=== PATIENT | female | born 1950 | race Caucasian/White ===

== ENCOUNTER 2018-05-30 23:24 | Emergency (ER) | payer MEDICARE, OTHER, SELFPAY ==
[2018-05-30 23:37] VITALS: BP 187/67; PULSE 64; RESP 17; TEMP 36.8; O2SAT 99; BMI 39.9
--- NOTE | 2018-05-30 23:56 | ED.FEMALEGU ---
HPI - Female Genitourinary General Chief complaint: Urogenital-Female Stated complaint: PREVIOUS FEVER AND DOESNT FEEL GOOD Time Seen by Provider: 05/30/18 23:53 Source: patient Mode of arrival: ambulatory Limitations: no limitations History of Present Illness HPI Narrative: Patient is a 68-year-old female who a couple days ago was seen by her primary care doctor for left flank pain. She had a CT scan performed at another facility where she stated that she was told she had bilateral kidney stones. She states that she was told that all of the stones were up in the kidneys. None were in the ureters. She was told that these are what was causing her pain. She was told that if she developed any fevers she needed to be evaluated. She states that earlier today she started having chills. Took her temperature and it was 100.4. EMS was called they are temperature was 99?. She came here to the emergency department for evaluation Related Data Previous Rx's Medication Instructions Recorded bupropion HCl 150 mg PO QDAY #180 tab 11/23/16 sertraline 200 mg PO QDAY #180 tab 11/23/16 Allergies Allergy/AdvReac Type Severity Reaction Status Date / Time cephalexin [From KEFLEX] Allergy Mild Unverified 09/19/17 12:39 Penicillins [PENICILLINS] Allergy Unknown Unverified 09/19/17 12:39 Review of Systems Constitutional Denies fatigue, Reports fever(s) and Reports malaise ENT Ears, Nose, Mouth, and Throat: Reports sinus pressure and Denies sore throat Cardiovascular Denies chest pain and Denies dyspnea Respiratory Denies dyspnea Gastrointestinal Gastrointestinal: Denies nausea and Denies vomiting Genitourinary Denies dysuria and Reports flank pain Endocrine Denies fatigue Hematologic/Lymphatic Denies easy bleeding PFSH Medical History Healthy adult (Acute) Surgical History No pertinent past surgical history (Acute) Social History Smoking Status: Never smoker Exam Initial Vital Signs Initial Vital Signs: Vital Signs Temperature 98.3 F 05/30/18 23:37 Pulse Rate 64 05/30/18 23:37 Respiratory Rate 17 05/30/18 23:37 Blood Pressure 187/67 H 05/30/18 23:37 Pulse Oximetry 99 05/30/18 23:37 Const General: cooperative, healthy appearing, comfortable, well developed, well groomed and No acute distress Orientation: alert, awake and oriented x3 HENMT Head: normal to inspection and normocephalic Resp Effort & Inspection: normal respiratory effort Auscultation: clear to auscultation bilaterally Cardio Rate: regular rate Rhythm: regular rhythm GI Inspection: non-distended Palpation: soft and No tender Back/Spine/Pelvis Back: No CVA tenderness Skin Rashes: no rashes Neuro General: alert, awake and oriented x3 Extrem General: normal to inspection and capillary refill normal Psych Appearance: grossly normal and well kempt Course Orders Ordered: ED Orders 05/31/18 00:15 Basic Metabolic Panel Stat Complete Blood Count AUTO DIFF Stat 05/31/18 00:26 Urine Microscopic Stat Vital Signs - 8 hr 05/30/18 23:37 Temperature 98.3 F Pulse Rate 64 Respiratory Rate 17 Blood Pressure 187/67 H Pulse Oximetry 99 MDM - Female Genitourinary Lab Data Attestation: I reviewed the patient's lab results. Result diagrams: 05/31/18 00:15 05/31/18 00:15 Lab Results 05/31/18 05/31/18 05/31/18 Range/Units 00:15 00:15 00:26 WBC 10.0 (4.5-11.0) X10^3/uL RBC 4.52 (4.0-5.2) X10^6/uL Hgb 13.5 (12.0-16.0) g/dL Hct 39.9 (36-46) % MCV 88.1 (80-100) fL MCH 29.9 (26-34) PG MCHC 34.0 (30-36) % RDW 12.6 (11.6-14.8) % Plt Count 309 (150-400) X10^3/uL Neut % (Auto) 71.2 (50-75) % Lymph % (Auto) 18.3 L (25-40) % [place] % (Auto) 8.8 (3-14) % Eos % (Auto) 1.3 L (2-4) % Baso % (Auto) 0.4 (0-2) % Neut # (Auto) 7100 H (3125-0779) /uL Sodium 140 (137-145) mmol/L Potassium 3.8 (3.4-5.1) mmol/L Chloride 107 (98-107) mmol/L Carbon Dioxide 24 (22-32) mmol/L BUN 19 H (7-17) mg/dL Creatinine 1.10 H (0.52-1.04) mg/dL Estimated GFR 49.7 L (>60) mL/min BUN/Creatinine Ratio 17.3 (6-22) Glucose 117 H (80-110) mg/dL Calcium 9.3 (8.4-10.2) mg/dL Urine RBC 1-5/hpf (0-5/HPF) Urine WBC 0-1/hpf (0-5/HPF) Urine Bacteria None seen (None) Ur Culture Indicated? Cult not indicated Micro UA Comment Not Reportable Urine Dip Bedside Urine Glucose Negative Bedside Urine Bilirubin - Negative Bedside Urine Ketone - Negative Urine Specific [place] 1.020 Bedside Urine Occult Blood ++ Bedside Urine pH 6.0 Bedside Urine Protein - Negative Bedside Urine Urobilinogen - Negative Bedside Urine Nitrite - Negative Bedside Urine Leukocytes - Negative Esterase MDM Narrative Medical decision making narrative: Patient shows no signs of urinary tract infection. She is not in any pain. He is afebrile. Does not have any leukocytosis. Will hold on further workup for now. Will hold on a CT scan for now because she knows that she has bilateral nephrolithiasis. No indication for antibiotics. When the patient follow up with her primary doctor regarding her blood pressure and also her slightly elevated creatinine. Patient was given return precautions. She expressed understanding and agreement with plan. Discharge Plan Departure Patient Disposition: Home Clinical Impression: Hematuria, Hypertension Instructions: Blood in Urine Activity Restrictions/Additional Instructions: I do recommend you follow-up with your primary doctor to discuss your slightly elevated blood pressure and also to discuss your labs. There is no signs of infection found on your workup here in the emergency department. Keep all of your scheduled medical appointments. Return to the emergency department for any new or worsening symptoms Prescriptions: No Action sertraline 100 MG tablet 200 mg PO QDAY Qty: 180 RF: 3 bupropion HCl 75 MG tablet 150 mg PO QDAY Qty: 180 RF: 3
[2018-05-31 00:29] LABS: Add Manual Diff / Slide Review NO; Basophils Percent Auto 0.4 % (0-2); Eosinophils Percent Auto 1.3 % (2-4); Hematocrit 39.9 % (36-46); Hemoglobin 13.5 g/dL (12.0-16.0); Lymphocytes Percent Auto 18.3 % (25-40); Mean Corpuscular Hemoglobin 29.9 PG (26-34); Mean Corpuscular Volume 88.1 fL (80-100); Monocytes Percent Auto 8.8 % (3-14); Neutrophils Absolute Auto 7100 /uL (1500-7000); Neutrophils Percent Auto 71.2 % (50-75); Platelet Count 309 X10^3/uL (150-400); Red Blood Cell Count 4.52 X10^6/uL (4.0-5.2); Red Cell Distribution Width 12.6 % (11.6-14.8)
[2018-05-31 00:34] LABS: Bacteria Urine None Seen
[2018-05-31 00:38] LABS: BUN Creatinine Ratio 17.3 (6-22); Blood Urea Nitrogen 19 mg/dL (7-17); Calcium 9.3 mg/dL (8.4-10.2); Carbon Dioxide 24 mmol/L (22-32); Chloride 107 mmol/L (98-107); Estimated Glomerular Filt Rate 49.7 mL/min (>60); Glucose 117 mg/dL (80-110); HEMOLYSIS < 15 (0-50); Potassium 3.8 mmol/L (3.4-5.1); Sodium 140 mmol/L (137-145)
[2018-05-31 00:54] LABS: RBC Urine 1-5/HPF (0-5/HPF); WBC Urine 0-1/HPF (0-5/HPF)
[2018-05-31 00:55] LABS: Culture Indicated Urine Cult Not Indicated
[2018-05-31 01:38] VITALS: BP 170/62; PULSE 62; RESP 16; TEMP 36.9; O2SAT 98
== END 2018-05-31 01:39 | disposition home or self-care (01) ==
PROVIDERS: Emergency Provider Emergency Medicine; PCP Family Medicine
DX: R31.9 Hematuria, unspecified (principal); I10 Essential (primary) hypertension
CPT/HCPCS: 36415; 80048; 81003; 81015; 85025; 99282; 99283

== ENCOUNTER → 2020-07-20 10:41 | Outpatient (CLI) | payer MEDICARE, OTHER, SELFPAY ==
--- NOTE | 2020-07-20 | DI.RAD.S_ITS ---
PROCEDURE: XR LUMBAR SPINE 2-3V INDICATIONS: Other chronic pain TECHNIQUE: 3 views of the lumbar spine were acquired. COMPARISON: None. FINDINGS: Bones: 5 [id number] vertebrae are present. There is normal bony alignment. No acute vertebral body compression fractures. No suspicious bony lesions. Multilevel lumbar spondylosis with mild degenerative endplate changes and small endplate osteophytes. Moderate-severe mid and lower lumbar facet arthropathy. Soft tissues: Overlying bowel gas pattern is normal. No suspicious soft tissue calcifications. Surgical clips in right upper quadrant compatible with prior cholecystectomy. IMPRESSION: 1. Lumbar spine without acute radiographic abnormalities. 2. Multilevel lumbar spondylosis with moderate-severe mid and lower lumbar facet arthropathy. Dictated by: Karlo Lares M.D. on 07/20/2020 at 17:37 Approved by: Karlo Lares M.D. on 07/20/2020 at 17:38
--- NOTE | 2020-07-20 | DI.RAD.S_ITS ---
PROCEDURE: XR SHOULDER LT MIN 2V INDICATIONS: Other chronic pain TECHNIQUE: 3 views of the shoulder were acquired. COMPARISON: None. FINDINGS: Bones: No acute fractures or dislocations. 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 Coracoclavicular and acromioclavicular intervals are maintained. No suspicious bony lesions. Visualized ribs appear intact. Soft tissues: No suspicious soft tissue calcifications. IMPRESSION: Left shoulder without acute fracture or dislocation. 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 Dictated by: Karlo Lares M.D. on 07/20/2020 at 17:36 Approved by: Karol Lares M.D. on 07/20/2020 at 17:37
--- NOTE | 2020-07-20 | DI.RAD.S_ITS ---
PROCEDURE: XR HIP W PEL IF DONE LT MIN 4V INDICATIONS: Other chronic pain TECHNIQUE: AP pelvis with lateral view(s) of the bilateral hip(s). COMPARISON: None. FINDINGS: Bones: No acute fractures or dislocations. Pelvic ring appears intact. No suspicious bony lesions. Mild degenerative changes of the bilateral hip joints. Mild lower lumbar spondylosis. Soft tissues: The visualized bowel gas pattern is normal. No suspicious soft tissue calcifications. IMPRESSION: Bilateral hip without acute fracture or dislocation. Mild degenerative changes of the bilateral hip joints. Lower lumbar spondylosis. Dictated by: Karlo Lares M.D. on 07/20/2020 at 17:39 Approved by: Karlo Lares M.D. on 07/20/2020 at 17:40
== END ==
PROVIDERS: PCP Family Medicine; Referring Provider Family Medicine; Visit Provider Family Medicine
DX: M25.512 Pain in left shoulder (principal); M54.5 Low back pain; M47.816 Spondylosis without myelopathy or radiculopathy, lumbar region; G89.29 Other chronic pain
CPT/HCPCS: 72100; 73030; 73522

== ENCOUNTER → 2020-09-23 12:16 | Outpatient (CLI) | payer MEDICARE, SELFPAY ==
--- NOTE | 2020-09-23 | DI.US.S_ITS ---
PROCEDURE: US RETROPERITONEAL COMP INDICATIONS: calculus of kidney TECHNIQUE: Real-time scanning was performed of the kidneys and bladder, with image documentation. COMPARISON: None. FINDINGS: Kidneys: Kidneys are normal in size. Right kidney measures 12.5 cm long; left kidney measures 1.7 cm long. Right renal cortical thickness is 13.1 cm; left renal cortical thickness is 1.5 cm. Renal cortical echotexture is normal. No hydronephrosis or nephrolithiasis. No suspicious solid mass lesions. Bladder: Pre-void bladder volume is 263 mL. Post-void residual is 0 mL. Pre-void images demonstrate no intraluminal masses or stones. On pre-void images, left but not right ureteral jets are noted with color Doppler interrogation. (Of note, ureteral jets may not be detectable in up to 25% of cases due to insufficient differences in specific gravity between ureteral and bladder urine). Miscellaneous: No free pelvic fluid. IMPRESSION: Normal renal ultrasound. No evidence of kidney stones. Dictated by: Edison Quigley M.D. on 09/23/2020 at 23:58 Approved by: Edison Quigley M.D. on 09/24/2020 at 0:00
== END ==
PROVIDERS: PCP Family Medicine; Referring Provider Internal Medicine Nephrology; Visit Provider Internal Medicine Nephrology
DX: N20.0 Calculus of kidney (principal)
CPT/HCPCS: 76770

== ENCOUNTER → 2020-12-28 10:09 | Outpatient (CLI) | payer MEDICARE, SELFPAY ==
[2020-12-28 19:11] LABS: Albumin 4.2 g/dL (3.5-5.0); BUN Creatinine Ratio 36.9 (6-22); Blood Urea Nitrogen 24 mg/dL (7-17); Calcium 10.2 mg/dL (8.4-10.2); Carbon Dioxide 26 mmol/L (22-32); Chloride 101 mmol/L (98-107); Estimated Glomerular Filt Rate > 60.0 mL/min (>60); Glucose 139 mg/dL (80-110); HEMOLYSIS < 15 (0-50); Phosphorous 3.6 mg/dL (2.8-4.1); Potassium 3.9 mmol/L (3.4-5.1); Sodium 137 mmol/L (137-145)
== END ==
PROVIDERS: PCP Family Medicine; Visit Provider Internal Medicine Nephrology
DX: E87.6 Hypokalemia (principal)
CPT/HCPCS: 80069

== ENCOUNTER → 2022-12-07 09:17 | Outpatient (CLI) | payer MEDICARE, SELFPAY ==
[2022-12-07 20:11] LABS: Thyroid Stimulating Hormone 2.47 uIU/mL (0.47-4.68)
[2022-12-07 20:17] LABS: Alanine Aminotransferase 25 IU/L (<35); Albumin 4.2 g/dL (3.5-5.0); Albumin Globulin Ratio 1.3 (1.0-2.8); Alkaline Phosphatase 55 U/L (38-126); Aspartate Aminotransferase 54 IU/L (14-36); BUN Creatinine Ratio 33.3 (6-22); Bilirubin Total 0.8 mg/dL (0.2-1.3); Blood Urea Nitrogen 20 mg/dL (7-17); Calcium 9.3 mg/dL (8.4-10.2); Carbon Dioxide 25 mmol/L (22-32); Chloride 100 mmol/L (98-107); Cholesterol 160 mg/dL (140-199); Estimated Glomerular Filt Rate > 60 mL/min (>60); Globulin 3.2 g/dL (1.7-4.1); Glucose 127 mg/dL (80-110); HDL Cholesterol 55 mg/dL (40-60); HEMOLYSIS 21 (0-50); LDL Cholesterol Calculated 78 mg/dL (<100); Potassium 3.8 mmol/L (3.4-5.1); Sodium 134 mmol/L (137-145); Total Protein 7.4 g/dL (6.3-8.2); Triglycerides 137 mg/dL (35-150)
[2022-12-07 20:22] LABS: Add Manual Diff / Slide Review YES; Hematocrit 44.7 % (36-46); Hemoglobin 15.3 g/dL (12.0-16.0); Mean Corpuscular HGB Conc 34.2 % (30-36); Mean Corpuscular Volume 87.6 fL (80-100); Platelet Count 279 X10^3/uL (150-400); Red Cell Distribution Width 12.7 % (11.6-14.8); White Blood Cell Count 5.6 X10^3/uL (4.5-11.0)
[2022-12-07 20:38] LABS: Neutrophils Absolute Manual 4312 /uL (3000-5900); RBC Morphology Normal Morphology; Total Cells Counted 100
[2022-12-08 23:07] LABS: x Labcorp Estim. Avg Glu (eAG) 128 mg/dL (.); x Labcorp Hemoglobin A1c 6.1 % (4.8-5.6)
== END ==
PROVIDERS: PCP Family Medicine; Visit Provider Family Medicine
DX: R73.09 Other abnormal glucose (principal); E87.6 Hypokalemia; I10 Essential (primary) hypertension
CPT/HCPCS: 80053; 80061; 83036; 84443; 85007; 85025

== ENCOUNTER → 2023-01-11 13:00 | Outpatient (CLI) | payer MEDICARE, SELFPAY ==
[2023-01-11 19:49] LABS: Alanine Aminotransferase 25 IU/L (<35); Albumin 4.4 g/dL (3.5-5.0); Albumin Globulin Ratio 1.5 (1.0-2.8); Alkaline Phosphatase 54 U/L (38-126); Aspartate Aminotransferase 30 IU/L (14-36); BUN Creatinine Ratio 31.1 (6-22); Bilirubin Total 0.5 mg/dL (0.2-1.3); Blood Urea Nitrogen 19 mg/dL (7-17); Calcium 9.8 mg/dL (8.4-10.2); Carbon Dioxide 26 mmol/L (22-32); Chloride 102 mmol/L (98-107); Estimated Glomerular Filt Rate > 60 mL/min (>60); Globulin 2.9 g/dL (1.7-4.1); Glucose 112 mg/dL (80-110); HEMOLYSIS < 15 (0-50); Potassium 3.9 mmol/L (3.4-5.1); Sodium 136 mmol/L (137-145); Total Protein 7.3 g/dL (6.3-8.2)
[2023-01-13 04:10] LABS: HBsAg Screen Negative (Negative); Hepatitis A Antibody IgM Negative (Negative); Hepatitis B Core Antibody IgM Negative (Negative); Hepatitis C Antibody Non Reactive (Non Reactive)
== END ==
PROVIDERS: PCP Family Medicine; Visit Provider Family Medicine
DX: R79.89 Other specified abnormal findings of blood chemistry (principal); E66.01 Morbid (severe) obesity due to excess calories; E78.2 Mixed hyperlipidemia; E87.1 Hypo-osmolality and hyponatremia; E87.6 Hypokalemia; I10 Essential (primary) hypertension; Z68.41 Body mass index [BMI] 40.0-44.9, adult; R73.09 Other abnormal glucose
CPT/HCPCS: 80053; 80074

== ENCOUNTER → 2023-02-28 12:01 | Outpatient (CLI) | payer MEDICARE, SELFPAY ==
[2023-02-28 20:18] LABS: BUN Creatinine Ratio 27.1 (6-22); Blood Urea Nitrogen 19 mg/dL (7-17); Calcium 9.9 mg/dL (8.4-10.2); Carbon Dioxide 29 mmol/L (22-32); Chloride 97 mmol/L (98-107); Estimated Glomerular Filt Rate > 60 mL/min (>60); Glucose 134 mg/dL (80-110); HEMOLYSIS < 15 (0-50); Sodium 135 mmol/L (137-145)
== END ==
PROVIDERS: PCP Family Medicine; Visit Provider Family Medicine
DX: E87.1 Hypo-osmolality and hyponatremia (principal); E87.6 Hypokalemia
CPT/HCPCS: 80048

== ENCOUNTER → 2023-03-08 10:37 | Outpatient (CLI) | payer MEDICARE, SELFPAY ==
--- NOTE | 2023-03-08 10:39 | DI.MG.S_ITS ---
BILATERAL DIGITAL SCREENING MAMMOGRAM 3D/2D WITH CAD: 03/08/2023 CLINICAL: Routine screening. Family history of breast cancer. Comparison is made to exams dated: 08/21/2017 mammogram - [facility], 12/15/2013 mammogram, and 12/03/2012 mammogram - [facility] ([place], [place]. There are scattered areas of fibroglandular density in both breasts (category b / 25%-50% glandular tissue). Current study was also evaluated with a Computer Aided Detection (CAD) system. No significant masses, calcifications, or other findings are seen in either breast. There has been no significant interval change. IMPRESSION: NEGATIVE There is no mammographic evidence of malignancy. A 1 year screening mammogram is recommended. Based on the Tyrer Cuzick model (a risk assessment model) the patient's lifetime risk is 4.4% and her 10 year risk is 3.0%. According to the ACR, ACS, and NCCN guidelines, an annual breast MRI exam along with mammogram is recommended if the patient's lifetime risk is 20% or greater. This exam was interpreted at Station ID: [id number]. NOTE: For mammograms, a report in lay terms will be sent to the patient. Approximately 15% of breast malignancies will not be visualized mammographically. In the management of a palpable breast mass, a negative mammogram must not discourage biopsy of a clinically suspicious lesion. Electronically Signed By: Sam yousif/juan c:03/08/2023 11:52:13 letter sent: Normal Exam ACR BI-RADS Category 1: Negative [id number]
== END ==
PROVIDERS: PCP Family Medicine; Referring Provider Family Medicine; Visit Provider Family Medicine
DX: Z12.31 Encounter for screening mammogram for malignant neoplasm of breast (principal); Z80.3 Family history of malignant neoplasm of breast
CPT/HCPCS: 77063; 77067

== ENCOUNTER → 2023-05-10 11:26 | Outpatient (CLI) | payer MEDICARE, SELFPAY ==
[2023-05-10 21:16] LABS: BUN Creatinine Ratio 31.7 (6-22); Blood Urea Nitrogen 20 mg/dL (7-17); Calcium 10.1 mg/dL (8.4-10.2); Carbon Dioxide 28 mmol/L (22-32); Chloride 99 mmol/L (98-107); Estimated Glomerular Filt Rate > 60 mL/min (>60); Glucose 117 mg/dL (80-110); HEMOLYSIS < 15 (0-50); Potassium 4.1 mmol/L (3.4-5.1); Sodium 136 mmol/L (137-145)
== END ==
PROVIDERS: PCP Family Medicine; Visit Provider Family Medicine
DX: E87.1 Hypo-osmolality and hyponatremia (principal); E87.6 Hypokalemia; I10 Essential (primary) hypertension
CPT/HCPCS: 80048

== ENCOUNTER 2023-06-19 18:52 | Observation (INO) | payer MEDICARE, SELFPAY ==
[2023-06-19] VITALS (17 sets, daily range): BP systolic 113–144; BP diastolic 58–88; PULSE 66–145; RESP 13–39; TEMP 36.8–37.1; O2SAT 96–98; BMI 41.1
--- NOTE | 2023-06-19 19:03 | DI.RAD.S_ITS ---
PROCEDURE: XR CHEST 1V INDICATIONS: chest pain TECHNIQUE: One view of the chest was acquired. COMPARISON: None. FINDINGS: Surgical changes and devices: None. Lungs and pleura: Lungs are clear. No pleural effusions or pneumothorax. Mediastinum: Mediastinal contours appear normal. Heart size is normal. Bones and chest wall: No suspicious bony lesions. Overlying soft tissues appear unremarkable. IMPRESSION: No acute cardiopulmonary abnormality is seen. Dictated by: Paco Lombardi M.D. on 06/19/2023 at 19:57 Approved by: Paco Lombardi M.D. on 06/19/2023 at 19:57
[2023-06-19 20:00] LABS: Add Manual Diff / Slide Review NO; Basophils Absolute Auto 0 /uL (0-100); Basophils Percent Auto 0.4 % (0-2); Eosinophils Absolute Auto 0 /uL (0-450); Eosinophils Percent Auto 0.5 % (2-4); Hemoglobin 16.4 g/dL (12.0-16.0); Lymphocytes Absolute Auto 1500 /uL (1100-4500); Lymphocytes Percent Auto 16.1 % (25-40); Mean Corpuscular HGB Conc 34.1 % (30-36); Mean Corpuscular Hemoglobin 30.1 PG (26-34); Mean Corpuscular Volume 88.3 fL (80-100); Monocytes Absolute Auto 700 /uL (0-900); Monocytes Percent Auto 7.9 % (3-14); Neutrophils Absolute Auto 6900 /uL (1500-7000); Neutrophils Percent Auto 75.1 % (50-75); Platelet Count 401 X10^3/uL (150-400); Prothrombin Time 11.8 SECONDS (9.4-12.5); Red Blood Cell Count 5.43 X10^6/uL (4.0-5.2); White Blood Cell Count 9.2 X10^3/uL (4.5-11.0)
[2023-06-19 20:02] LABS: PTT Partial Thromboplastin Tim 30 SECONDS (25.1-36.5)
[2023-06-19 20:05] LABS: Alanine Aminotransferase 30 IU/L (<35); Albumin 4.6 g/dL (3.5-5.0); Albumin Globulin Ratio 1.4 (1.0-2.8); Alkaline Phosphatase 57 U/L (38-126); Aspartate Aminotransferase 31 IU/L (14-36); Bilirubin Total 0.8 mg/dL (0.2-1.3); Blood Urea Nitrogen 16 mg/dL (7-17); Calcium 10.2 mg/dL (8.4-10.2); Carbon Dioxide 22 mmol/L (22-32); Chloride 103 mmol/L (98-107); Creatine Kinase 57 U/L (30-135); Estimated Glomerular Filt Rate > 60 mL/min (>60); Globulin 3.4 g/dL (1.7-4.1); Glucose 121 mg/dL (80-110); HEMOLYSIS 17 (0-50); Lipase 62 U/L (23-300); Potassium 3.9 mmol/L (3.4-5.1); Sodium 136 mmol/L (137-145)
[2023-06-19 20:16] LABS: Troponin I < 0.012 ng/mL (0.01-0.034)
--- NOTE | 2023-06-19 20:24 | ED_ITS ---
HPI - Arrhythmia/Palpitations General Chief Complaint: Arrhythmia/Palpitations Stated Complaint: AFIB Time Seen by Provider: 06/19/23 20:07 Source: patient Mode of arrival: Ambulatory Limitations: no limitations History of Present Illness HPI narrative: Patient is a 73-year-old female who was sent to the emergency department by her primary doctor for evaluation of a rapid heart rate. Patient went to go see her primary doctor today for right ear discomfort. It was during that visit she was found to be tachycardic into the 150s. Patient is asymptomatic with regard to the tachycardia. She has never had a history of AFib. No chest pain. No shortness of breath. No lightheadedness. She is never had a history of AFib. She was told that she potentially has an infection of her right ear and also ear wax. She does wear hearing aids. She denies abdominal pain, nausea vomiting, fevers or lower extremity swelling. Related Data Home Medications Medication Instructions Recorded Confirmed acetaminophen 500 mg tablet 500 mg PO ONCE PRN 09/29/22 06/19/23 (Tylenol Extra Strength) cetirizine 10 mg tablet 10 mg PO DAILY PRN 09/29/22 06/19/23 cholecalciferol (vitamin D3) 25 25 mcg PO DAILY 09/29/22 06/19/23 mcg (1,000 unit) capsule ferrous sulfate 140 mg (45 mg 140 mg PO DAILY 09/29/22 06/19/23 iron) tablet,extended release potassium chloride 20 mEq 40 meq PO BID 10/02/22 06/19/23 tablet,extended release(part/cryst) fluoride (sodium) 1.1 % dental dental 12/28/22 06/19/23 paste (Clinpro 5000) Previous Rx's Medication Instructions Recorded azelastine 137 mcg (0.1 %) nasal 1 spray intranasal BID #30 mL 09/29/22 spray aerosol ipratropium bromide 21 mcg (0.03 2 spray intranasal TID PRN allergy 11/28/22 %) nasal spray symptoms #90 mL chlorthalidone 25 mg tablet 25 mg PO DAILY #90 tabs 02/26/23 bupropion HCl 100 mg tablet,12 hr 100 mg PO BID #180 ea 03/02/23 sustained-release amiloride 5 mg tablet 10 mg (2 x 5 mg) PO DAILY #180 tabs 03/22/23 amlodipine 10 mg tablet 10 mg PO QAM for blood pressure. 05/19/23 take every day even if normal #90 tabs lisinopril 5 mg tablet 5 mg PO QPM take every day for BP 05/19/23 -- take even if normal #90 tabs rosuvastatin 40 mg tablet 40 mg PO ONCE PM #90 tabs 05/19/23 sertraline 100 mg tablet 200 mg (2 x 100 mg) PO DAILY #180 05/19/23 tabs ciprofloxacin 0.3 %-dexamethasone 4 drp EAR-RIGHT BID 7 days #7.5 mL 06/19/23 0.1 % ear drops,suspension Allergies Allergy/AdvReac Type Severity Reaction Status Date / Time cephalexin [From KEFLEX] Allergy Mild Verified 06/19/23 14:43 Penicillins [PENICILLINS] Allergy Unknown Verified 06/19/23 14:43 Review of Systems Review of Systems ROS Unobtainable: All systems reviewed & are unremarkable except as noted in HPI and below Patient History Medical History Mood disorder Hypertension Kidney stones Hypokalemia Morbid obesity with BMI of 40.0-44.9, adult Clear cell renal cell carcinoma Chronic allergic rhinitis Healthy adult Surgical History Hx of nephrolithotomy with removal of calculi Social History Smoking Status: Never smoker Smoking Status: Never smoker alcohol intake frequency: holidays/special occasions only Substance Use Type: does not use Exam Initial Vital Signs Initial Vital Signs: Vital Signs Temperature 98.7 F 06/19/23 18:57 Pulse Rate 66 06/19/23 18:57 Respiratory Rate 20 06/19/23 18:57 Pulse Oximetry 97 06/19/23 18:57 Oxygen Delivery Method Room Air 06/19/23 18:57 Const General: cooperative, comfortable and No ill appearing HENMT Head: normal to inspection HENMT Other: Appears to be cerumen in her right ear Resp Effort & Inspection: normal respiratory effort Auscultation: clear to auscultation bilaterally Cardio Rate: tachycardic Rhythm: abnormal rhythm GI Inspection: normal to inspection Skin General: no rashes or lesions noted Neuro General: patient alert, patient awake, patient oriented x3 and moves all extremities Extrem General: normal to inspection and capillary refill normal Course Orders Ordered: ED Orders 06/19/23 19:03 XR chest 1V Stat EKG-12 Lead Stat 06/19/23 19:40 Complete Blood Count AUTO DIFF Stat Comprehensive Metabolic Panel Stat Lipase Stat Magnesium Stat PTT Partial Thromboplastin Fredrick Stat Prothrombin Time INR Stat Troponin & CK Cardiac Panel Stat Acetaminophen (Acetaminophen 325 Mg Tablet) 650 mg PO Q6H PRN PRN Reason: Fever/Mild Pain (1-3) Bupropion HCl (Bupropion Sr 100 Mg Tab) 100 mg PO BID SEVERINO Ciprofloxacin/Dexamethasone (Ciprofloxacin/Dexameth Otic Susp) drops EAR-RIGHT BID SEVERINO DILTIAZEM (Diltiazem 125 Mg/125 Ml-D5w) 125 mg in 125 mls @ 5 mls/hr IV TITRATE SEVERINO; Protocol Last Titration: 06/19/23 21:26 Dose: 15 mg/hr, 15 mls/hr Documented By: Titration: 06/19/23 20:59 Dose: 10 mg/hr, 10 mls/hr Documented By: Admin: 06/19/23 20:35 Dose: 5 mg/hr, 5 mls/hr Documented By: ZAC Naloxone HCl (Naloxone 0.4 Mg/Ml Vial) 0.2 mg IV Q2MIN PRN PRN Reason: Opiate Reversal Non-Formulary Medication (Rosuvastatin) 40 mg PO ONCE PM SEVERINO Non-Formulary Medication (Cetirizine) 10 mg PO DAILY PRN PRN Reason: Allergic Symptoms Sertraline HCl (Sertraline 50 Mg Tablet) 200 mg PO DAILY [facility] Discontinued Medications Aspirin (Aspirin 81 Mg Chew Tab) 324 mg PO NOW ONE Stop: 06/19/23 19:04 Diltiazem HCl (Diltiazem 5 Mg/Ml Sdv) 10 mg IV NOW ONE Stop: 06/19/23 20:25 Last Admin: 06/19/23 20:31 Dose: 10 mg Documented By: ZAC Vital Signs Vital signs: Vital Signs - 8 hr 06/19/23 18:57 06/19/23 20:00 06/19/23 20:01 Temperature 98.7 F Pulse Rate 66 145 H Respiratory Rate 20 19 Blood Pressure 144/87 H Pulse Oximetry 97 96 Oxygen Delivery Method Room Air 06/19/23 20:01 06/19/23 20:30 06/19/23 20:35 Temperature Pulse Rate 128 H 137 H Respiratory Rate 24 30 H Blood Pressure 131/58 L Pulse Oximetry 97 97 Oxygen Delivery Method Room Air 06/19/23 20:35 06/19/23 20:58 06/19/23 20:59 Temperature Pulse Rate 125 H 124 H Respiratory Rate 31 H 17 Blood Pressure 116/63 Pulse Oximetry 98 96 Oxygen Delivery Method 06/19/23 20:59 06/19/23 21:00 06/19/23 21:00 Temperature Pulse Rate 119 H 121 H Respiratory Rate 23 13 Blood Pressure 132/61 Pulse Oximetry 98 97 Oxygen Delivery Method MDM - Arrhythmia/Palpitations Lab Data Attestation: I reviewed the patient's lab results. 06/19/23 19:40 06/19/23 19:40 Labs: Lab Results 06/19/23 Range/Units 19:40 WBC 9.2 (4.5-11.0) X10^3/uL RBC 5.43 H (4.0-5.2) X10^6/uL Hgb 16.4 H (12.0-16.0) g/dL Hct 48.0 H (36-46) % MCV 88.3 (80-100) fL MCH 30.1 (26-34) PG MCHC 34.1 (30-36) % RDW 13.0 (11.6-14.8) % Plt Count 401 H (150-400) X10^3/uL Neut % (Auto) 75.1 H (50-75) % Lymph % (Auto) 16.1 L (25-40) % [place] % (Auto) 7.9 (3-14) % Eos % (Auto) 0.5 L (2-4) % Baso % (Auto) 0.4 (0-2) % Neut # (Auto) 6900 (7297-3674) /uL Lymph # (Auto) 1500 (0821-5560) /uL [place] # (Auto) 700 (0-900) /uL Eos # (Auto) 0 (0-450) /uL Baso # (Auto) 0 (0-100) /uL PT 11.8 (9.4-12.5) SECONDS INR 1.0 (0.9-1.3) APTT 30 (25.1-36.5) SECONDS Sodium 136 L (137-145) mmol/L Potassium 3.9 (3.4-5.1) mmol/L Chloride 103 (98-107) mmol/L Carbon Dioxide 22 (22-32) mmol/L BUN 16 (7-17) mg/dL Creatinine 0.64 (0.52-1.04) mg/dL Estimated GFR > 60 (>60) mL/min BUN/Creatinine Ratio 25.0 H (6-22) Glucose 121 H (80-110) mg/dL Calcium 10.2 (8.4-10.2) mg/dL Magnesium 2.0 (1.6-2.3) mg/dL Total Bilirubin 0.8 (0.2-1.3) mg/dL AST 31 (14-36) IU/L ALT 30 (<35) IU/L Alkaline Phosphatase 57 (38-126) U/L Total Creatine Kinase 57 (30-135) U/L Troponin I < 0.012 (0.01-0.034) ng/mL Total Protein 8.0 (6.3-8.2) g/dL Albumin 4.6 (3.5-5.0) g/dL Globulin 3.4 (1.7-4.1) g/dL Albumin/Globulin Ratio 1.4 (1.0-2.8) Lipase 62 (23-300) U/L Imaging Data Chest x-ray: Radiologist's Impresson: PROCEDURE: XR CHEST 1V INDICATIONS: chest pain TECHNIQUE: One view of the chest was acquired. COMPARISON: None. FINDINGS: Surgical changes and devices: None. Lungs and pleura: Lungs are clear. No pleural effusions or pneumothorax. Mediastinum: Mediastinal contours appear normal. Heart size is normal. Bones and chest wall: No suspicious bony lesions. Overlying soft tissues appear unremarkable. IMPRESSION: No acute cardiopulmonary abnormality is seen. ECG Data Attestation: I personally reviewed and interpreted this ECG as follows: Interpretation: Atrial fibrillation Ventricular rate 146 Normal axis Normal QRS Nonspecific ST T wave changes MDM Narrative Medical decision making narrative: Patient is AFib with RVR. Not hypotensive. She is asymptomatic from this. Unsure as to how long she has been in AFib. Not a candidate for cardioversion. Patient does require rate control. Was started on diltiazem. Patient does require admission for further evaluation and treatment. Discussed the case with Dr. Velásquez hospitalist on-call who will admit. Discussed the need for admission with the patient. She expressed understanding and agreement as well. Discharge Plan Departure Patient Disposition: Admitted As Inpatient Clinical Impression: Atrial fibrillation with RVR Admit Date/Time: 06/19/23 21:41 Admit Provider: Gumaro Garcia
[2023-06-19] MEDS: dilTIAZem 5 MG/ML SDV 10 MG IV (20:31)
[2023-06-19] MEDS: DILTIAZEM 125 MG/125 ML PIGGYBACK IV (20:35)
--- NOTE | 2023-06-19 22:16 | PM.HP.1 ---
History of Present Illness History of Present Illness Chief complaint: AFIB Narrative: 73 y/o with PMH of HTN, depression, HLD, seen earlier today at [facility] for earache and diagnosed with Rt external ottitis in [facility] [place], by Dr Rosa Clifton. She noticed irregular and fast HR and ECG showed rapid A-fib. Patient did not have palpitations, chest pain or chortness of breath. Her complaint was right ear pain only. Sent to ED were she was treated with 10 mg of Cardizem ivp followed by the drip. Initial workup negative for ACS or electrolyte abnormalities. [facility] Medical History Mood disorder Hypertension Kidney stones Hypokalemia Morbid obesity with BMI of 40.0-44.9, adult Clear cell renal cell carcinoma Chronic allergic rhinitis Healthy adult Surgical History Hx of nephrolithotomy with removal of calculi Social History Smoking Status: Never smoker Meds Home Medications and Allergies Home Medications Medication Instructions Recorded Confirmed Type acetaminophen 500 mg tablet 500 mg PO ONCE PRN 09/29/22 06/19/23 History (Tylenol Extra Strength) azelastine 137 mcg (0.1 %) nasal 1 spray intranasal BID #30 mL 09/29/22 06/19/23 Rx spray aerosol cetirizine 10 mg tablet 10 mg PO DAILY PRN 09/29/22 06/19/23 History cholecalciferol (vitamin D3) 25 25 mcg PO DAILY 09/29/22 06/19/23 History mcg (1,000 unit) capsule ferrous sulfate 140 mg (45 mg 140 mg PO DAILY 09/29/22 06/19/23 History iron) tablet,extended release potassium chloride 20 mEq 40 meq PO BID 10/02/22 06/19/23 History tablet,extended release(part/cryst) ipratropium bromide 21 mcg (0.03 2 spray intranasal TID PRN allergy 11/28/22 06/19/23 Rx %) nasal spray symptoms #90 mL fluoride (sodium) 1.1 % dental dental 12/28/22 06/19/23 History paste (Clinpro 5000) chlorthalidone 25 mg tablet 25 mg PO DAILY #90 tabs 02/26/23 06/19/23 Rx bupropion HCl 100 mg tablet,12 hr 100 mg PO BID #180 ea 03/02/23 06/19/23 Rx sustained-release amiloride 5 mg tablet 10 mg (2 x 5 mg) PO DAILY #180 tabs 03/22/23 06/19/23 Rx amlodipine 10 mg tablet 10 mg PO QAM for blood pressure. 05/19/23 06/19/23 Rx take every day even if normal #90 tabs lisinopril 5 mg tablet 5 mg PO QPM take every day for BP 05/19/23 06/19/23 Rx -- take even if normal #90 tabs rosuvastatin 40 mg tablet 40 mg PO ONCE PM #90 tabs 05/19/23 06/19/23 Rx sertraline 100 mg tablet 200 mg (2 x 100 mg) PO DAILY #180 05/19/23 06/19/23 Rx tabs ciprofloxacin 0.3 %-dexamethasone 4 drp EAR-RIGHT BID 7 days #7.5 mL 06/19/23 06/19/23 Rx 0.1 % ear drops,suspension Allergies Allergy/AdvReac Type Severity Reaction Status Date / Time cephalexin [From KEFLEX] Allergy Mild Verified 06/19/23 14:43 Penicillins [PENICILLINS] Allergy Unknown Verified 06/19/23 14:43 Review of Systems Constitutional Comments: w/o fever or chills Cardiovascular Comments: w/o palpitations w/o chest pain has exertional dyspnea Respiratory Comments: w/o cough, short of breath with activity only Neurologic Comments: w/o numbness, weakness, headache Psychiatric Comments: stable mood Exam Vital Signs (past 8 hours): - 06/19/23 18:57 06/19/23 20:00 06/19/23 20:01 Temperature 98.7 F Pulse Rate 66 145 H Respiratory Rate 20 19 Blood Pressure 144/87 H Pulse Oximetry 97 96 Oxygen Delivery Method Room Air 06/19/23 20:01 06/19/23 20:30 06/19/23 20:35 Temperature Pulse Rate 128 H 137 H Respiratory Rate 24 30 H Blood Pressure 131/58 L Pulse Oximetry 97 97 Oxygen Delivery Method Room Air 06/19/23 20:35 06/19/23 20:58 06/19/23 20:59 Temperature Pulse Rate 125 H 124 H Respiratory Rate 31 H 17 Blood Pressure 116/63 Pulse Oximetry 98 96 Oxygen Delivery Method 06/19/23 20:59 06/19/23 21:00 06/19/23 21:00 Temperature Pulse Rate 119 H 121 H Respiratory Rate 23 13 Blood Pressure 132/61 Pulse Oximetry 98 97 Oxygen Delivery Method Oxygen Delivery Method Room Air Const Other: In no distress, sitting in bed Resp Other: Normal respiratory effort Cardio Other: irregular, tachycardic w/o JVD or legs edema GI Other: obese abdomen Skin Other: no rashes Neuro Other: w/o deficits Extrem Other: w/o swelling Psych Other: appropriate mood Lucid, decisional Objective ECG Impression: Atrial Fibrillation, non-specific ST changes Labs 06/19/23 19:40 06/19/23 19:40 Labs: Laboratory Results - last 24 hr 06/19/23 19:40 WBC 9.2 RBC 5.43 H Hgb 16.4 H Hct 48.0 H MCV 88.3 MCH 30.1 MCHC 34.1 RDW 13.0 Plt Count 401 H Neut % (Auto) 75.1 H Lymph % (Auto) 16.1 L [place] % (Auto) 7.9 Eos % (Auto) 0.5 L Baso % (Auto) 0.4 Neut # (Auto) 6900 Lymph # (Auto) 1500 [place] # (Auto) 700 Eos # (Auto) 0 Baso # (Auto) 0 PT 11.8 INR 1.0 APTT 30 Sodium 136 L Potassium 3.9 Chloride 103 Carbon Dioxide 22 BUN 16 Creatinine 0.64 Estimated GFR > 60 BUN/Creatinine Ratio 25.0 H Glucose 121 H Calcium 10.2 Magnesium 2.0 Total Bilirubin 0.8 AST 31 ALT 30 Alkaline Phosphatase 57 Total Creatine Kinase 57 Troponin I < 0.012 Total Protein 8.0 Albumin 4.6 Globulin 3.4 Albumin/Globulin Ratio 1.4 Lipase 62 Assessment & Plan Assessment and plan (1) Atrial fibrillation with rapid ventricular response: Status: Acute Plan: Cardizem drip - no evidence of ACS - ECHO pending - given ASA 325 mg in ED - CHADSVASC 3, discussed with patient, recommended anticoagulation after r/o contraindications - referral to cardiology on discharge (2) Hypertension: Qualifiers: Hypertension type: primary hypertension Qualified Code(s): I10 - Essential (primary) hypertension Status: Acute Plan: Holding Norvasc 10 mg daily, Amilorid 5 mg daily, chlorthalidone 25 mg daily, KCl 40 mEq bid and Lisinopril 5 mg daily - while in rapid A-fib, on cardizem drip (3) Clear cell renal cell carcinoma: Qualifiers: Laterality: right Qualified Code(s): C64.1 - Malignant neoplasm of right kidney, except renal pelvis Status: Acute Plan: - for elective surgery if looses weight - as per PCP's office note (4) Otitis externa of right ear: Qualifiers: Otitis externa type: other infective Chronicity: acute Qualified Code(s): H60.391 - Other infective otitis externa, right ear Status: Acute Plan: Cipro/dexa drops, started today (5) Depression: Status: Acute Plan: Zoloft, Wellbutrin (6) Chronic allergic rhinitis: Status: Acute Plan: Claritin
[2023-06-19] MEDS: ASPIRIN 81 MG CHEW TAB 324 MG PO (22:40)
[2023-06-19] MEDS: ACETAMINOPHEN 325 MG TABLET 650 MG PO (22:42)
[2023-06-20] VITALS (21 sets, daily range): BP systolic 108–146; BP diastolic 56–113; PULSE 78–119; RESP 12–35; TEMP 36.6; O2SAT 93–98
[2023-06-20] MEDS: ATORVASTATIN 20 MG TABLET 80 MG PO (01:09)
[2023-06-20] MEDS: DILTIAZEM 125 MG/125 ML PIGGYBACK 15 MG IV (03:24)
[2023-06-20] MEDS: ACETAMINOPHEN 325 MG TABLET 650 MG PO ×2 (04:34→08:18)
[2023-06-20 05:15] LABS: Add Manual Diff / Slide Review NO; Basophils Absolute Auto 0 /uL (0-100); Basophils Percent Auto 0.2 % (0-2); Eosinophils Absolute Auto 100 /uL (0-450); Hematocrit 42.3 % (36-46); Hemoglobin 14.7 g/dL (12.0-16.0); Lymphocytes Absolute Auto 1700 /uL (1100-4500); Mean Corpuscular HGB Conc 34.9 % (30-36); Mean Corpuscular Hemoglobin 31.5 PG (26-34); Mean Corpuscular Volume 90.2 fL (80-100); Monocytes Absolute Auto 700 /uL (0-900); Monocytes Percent Auto 9.9 % (3-14); Neutrophils Absolute Auto 5100 /uL (1500-7000); Neutrophils Percent Auto 66.9 % (50-75); Platelet Count 325 X10^3/uL (150-400); Red Blood Cell Count 4.69 X10^6/uL (4.0-5.2); White Blood Cell Count 7.6 X10^3/uL (4.5-11.0)
[2023-06-20 05:36] LABS: BUN Creatinine Ratio 24.7 (6-22); Blood Urea Nitrogen 18 mg/dL (7-17); Calcium 9.5 mg/dL (8.4-10.2); Carbon Dioxide 25 mmol/L (22-32); Chloride 101 mmol/L (98-107); Estimated Glomerular Filt Rate > 60 mL/min (>60); Glucose 128 mg/dL (80-110); HEMOLYSIS < 15 (0-50); Potassium 3.7 mmol/L (3.4-5.1); Sodium 135 mmol/L (137-145)
[2023-06-20 06:05] LABS: MRSA (Nasal) PCR Not Detected (Not Detect)
[2023-06-20] MEDS: SERTRALINE 50 MG TABLET 200 MG PO (08:18)
[2023-06-20] MEDS: CIPROFLOXACIN/DEXAMETH OTIC SUSP 4 DROPS EAR-RIGHT (08:18)
[2023-06-20] MEDS: APIXABAN 5 MG TABLET PO (08:18)
[2023-06-20] MEDS: buPROPion SR 100 MG TAB PO (08:18)
--- NOTE | 2023-06-20 08:41 | CM.DANOTE ---
Addendum entered by PRIYANKA Lopez 06/20/23 08:44: ADD: No hx of HH or SNF Original Note: Initial DCP Assessment Note Pt is a 73 yo female, resident of [place] on [facility], arrives with afib, admitted to the ICU for monitoring and management. PCP: Nicole Triana Payer: [facility] MCR Reviewed chart,Met w/patient to introduce self and role. Patient lives alone on [facility] and is independent in all aspects. Patient drives, says she has her car in the parking lot and plans to drive home upon discharge. Patient is concerned about the weather in case it snows and gets icy, making driving home more challenging on the good thunder. No barriers identified at this time to patient's safe discharge home; close outpatient f/u recommended. CM team will plan to follow closely in case any DC needs or concerns arise. PRIYANKA Conrad Discharge Planning/Care Management CM Discharge Assessment Start: 06/20/23 08:39 Freq: Status: Active Protocol: Document 06/20/23 08:39 ESTER (Rec: 06/20/23 08:41 ESTER [id number]) Discharge Planning Assessment Assigned [employer] PRIYANKA Marley DPOA/Assigned Designee Name Scot Rivers, son ( Gely Gipson) Contact Information [phone] Advance Directives? Yes Advance Directives on File No History Provided By Patient,Medical Record Prior Living Arrangements House Household Members none Type of transporation used prior to Drives own vehicle admit Independent with ADL's Yes Is patient alert and oriented? Yes Discharge Plan Home Transportation Arrangement Self, patient says her car is in the parking lot Referrals Initiated None needed
[2023-06-20] MEDS: dilTIAZem CD 180 MG CAP 360 MG PO (09:22)
[2023-06-20] MEDS: dilTIAZem CD 120 MG CAP PO (09:22)
[2023-06-20] MEDS: POTASSIUM CHLORIDE 20 MEQ TAB 40 MEQ PO (10:28)
--- NOTE | 2023-06-20 13:40 | PM.DS.1 ---
History of Present Illness History of Present Illness Chief complaint: AFIB Narrative: 73 y/o with PMH of HTN, depression, HLD, seen earlier today at [facility] for earache and diagnosed with Rt external ottitis in [facility] [place], by Dr Rosa Clifton. She noticed irregular and fast HR and ECG showed rapid A-fib. Patient did not have palpitations, chest pain or chortness of breath. Her complaint was right ear pain only. Sent to ED were she was treated with 10 mg of Cardizem ivp followed by the drip. Initial workup negative for ACS or electrolyte abnormalities. Discharge Providers Provider Date of admission: 06/19/23 21:41 Discharge Date: 06/20/23 Primary care physician: Nicole Triana MD Discharge provider: Bj Pacheco DO Summary Hospital Course Discharge Diagnosis: (1) Atrial fibrillation with rapid ventricular response: Status: Acute Plan: new diagnosis. Required Cardizem drip at 15ml/hr and HR in 80's - no evidence of ACS - unable to obtain echo due to staffing, patient will get PCP to order outpatient echo - given ASA 325 mg in ED - CHADSVASC 3, discussed with patient, recommended anticoagulation after r/o contraindications - patient to get referral to cardiology from PCP - started eliquis 5mg BID - transitioned to po 420mg diltiazem ER, HR 80-100's (2) Hypertension: Qualifiers: Hypertension type: primary hypertension Qualified Code(s): I10 - Essential (primary) hypertension Status: Acute Plan: Holding Norvasc 10 mg daily, Amilorid 5 mg daily, chlorthalidone 25 mg daily, KCl 40 mEq bid and Lisinopril 5 mg daily - while in rapid A-fib, on cardizem drip -restarted home BP meds on discharge (3) Clear cell renal cell carcinoma: Qualifiers: Laterality: right Qualified Code(s): C64.1 - Malignant neoplasm of right kidney, except renal pelvis Status: Acute Plan: - for elective surgery if loses weight - as per PCP's office note (4) Otitis externa of right ear: Qualifiers: Otitis externa type: other infective Chronicity: acute Qualified Code(s): H60.391 - Other infective otitis externa, right ear Status: Acute Plan: Cipro/dexa drops, started today (5) Depression: Status: Acute Plan: Zoloft, Wellbutrin (6) Chronic allergic rhinitis: Status: Acute Plan: Claritin Hospital Course: Admitted for A-fib RVR and put on dilt drip. Patient responded well overnight and HR became controlled in 80's at 15mL/hr. Transitioned to po diltiazem 420mg ER daily. Started on eliquis 5mg BID. Patient to get referral to cardiology from PCP and also outpatient echo given we were unable to complete echo as inpatient due to staffing. Exam Vital Signs (past 8 hours): - 06/20/23 06:00 06/20/23 06:00 06/20/23 06:30 Temperature Pulse Rate 81 79 Respiratory Rate 12 28 H Blood Pressure 135/60 Pulse Oximetry 97 94 Oxygen Delivery Method 06/20/23 07:00 06/20/23 07:00 06/20/23 08:00 Temperature 98 F Pulse Rate 78 Respiratory Rate 22 Blood Pressure 132/68 Pulse Oximetry 94 Oxygen Delivery Method 06/20/23 08:00 06/20/23 08:00 06/20/23 09:00 Temperature Pulse Rate 81 Respiratory Rate 17 Blood Pressure 143/70 H 131/78 Pulse Oximetry 97 Oxygen Delivery Method 06/20/23 09:00 06/20/23 09:01 06/20/23 10:00 Temperature Pulse Rate 97 H Respiratory Rate 20 Blood Pressure 126/74 Pulse Oximetry Oxygen Delivery Method Room Air 06/20/23 10:00 06/20/23 11:00 06/20/23 11:01 Temperature Pulse Rate 99 H 86 96 H Respiratory Rate 30 H 26 H 23 Blood Pressure Pulse Oximetry Oxygen Delivery Method 06/20/23 11:01 06/20/23 12:00 06/20/23 12:00 Temperature Pulse Rate 119 H Respiratory Rate 29 H Blood Pressure 146/113 H 125/82 Pulse Oximetry 98 Oxygen Delivery Method Oxygen Delivery Method Room Air Const Other: In no distress, sitting in bed Resp Other: Normal respiratory effort Cardio Other: irregular, tachycardic w/o JVD or legs edema GI Other: obese abdomen Skin Other: no rashes Neuro Other: w/o deficits Extrem Other: w/o swelling Psych Other: appropriate mood Lucid, decisional Objective Labs 06/20/23 04:15 06/20/23 04:15 Labs: Laboratory Results - last 24 hr 06/19/23 06/20/23 06/20/23 19:40 00:01 04:15 WBC 9.2 7.6 RBC 5.43 H 4.69 Hgb 16.4 H 14.7 Hct 48.0 H 42.3 MCV 88.3 90.2 MCH 30.1 31.5 MCHC 34.1 34.9 RDW 13.0 13.0 Plt Count 401 H 325 Neut % (Auto) 75.1 H 66.9 Lymph % (Auto) 16.1 L 22.0 L [place] % (Auto) 7.9 9.9 Eos % (Auto) 0.5 L 1.0 L Baso % (Auto) 0.4 0.2 Neut # (Auto) 6900 5100 Lymph # (Auto) 1500 1700 [place] # (Auto) 700 700 Eos # (Auto) 0 100 Baso # (Auto) 0 0 PT 11.8 INR 1.0 APTT 30 Sodium 136 L 135 L Potassium 3.9 3.7 Chloride 103 101 Carbon Dioxide 22 25 BUN 16 18 H Creatinine 0.64 0.73 Estimated GFR > 60 > 60 BUN/Creatinine Ratio 25.0 H 24.7 H Glucose 121 H 128 H Calcium 10.2 9.5 Magnesium 2.0 2.0 Total Bilirubin 0.8 AST 31 ALT 30 Alkaline Phosphatase 57 Total Creatine Kinase 57 Troponin I < 0.012 Total Protein 8.0 Albumin 4.6 Globulin 3.4 Albumin/Globulin Ratio 1.4 Lipase 62 Nasal Screen MRSA (PCR) Not detected [facility] Medical History Mood disorder Hypertension Kidney stones Hypokalemia Morbid obesity with BMI of 40.0-44.9, adult Clear cell renal cell carcinoma Chronic allergic rhinitis Healthy adult Surgical History Hx of nephrolithotomy with removal of calculi Social History household members: none Smoking Status: Never smoker alcohol intake: current Discharge Plan Discharge Plan Patient Disposition: Home Provider Discharge Comment: You were diagnosed with atrial fibrillation which is a heart arrhythmia that can cause strokes. You will now be on a heart medication called diltiazem to control your heart rate, and a blood thinner called eliquis. Please follow-up with your PCP to get an echocardiogram ordered and cardiology referral. Dr. Pacheco Discharge orders & Medications Prescriptions: New Eliquis 5 mg Tablet 5 mg PO BID Qty: 60 0RF diltiazem HCl 420 mg capsule,extended release 24hr 420 mg PO QAM Qty: 30 0RF Rx Instructions: start on 06/21 Continued ipratropium bromide 21 mcg (0.03 %) spray,non-aerosol 2 spray intranasal TID PRN (Reason: allergy symptoms) Qty: 90 3RF Rx Instructions: and prn congestion. administer into each nostril, amiloride 5 mg tablet 10 mg PO DAILY Qty: 180 1RF rosuvastatin 40 mg tablet 40 mg PO ONCE PM Qty: 90 1RF amlodipine 10 mg tablet 10 mg PO QAM Qty: 90 1RF lisinopril 5 mg tablet 5 mg PO QPM Qty: 90 1RF sertraline 100 mg tablet 100 mg PO BID chlorthalidone 25 mg tablet 25 mg PO DAILY Qty: 90 1RF Rx Instructions: 1 tablet daily in the morning bupropion HCl 100 mg tablet sustained-release 12 hr 100 mg PO BID Qty: 180 1RF Rx Instructions: SR formulation. please change to BID ciprofloxacin-dexamethasone 0.3-0.1 % drops,suspension 4 drp EAR-RIGHT BID 7 Days Qty: 7.5 0RF acetaminophen [Tylenol Extra Strength] 500 mg tablet 500 mg PO ONCE PRN (Reason: Pain (Scale Score 1-3)) Rx Instructions: Once a day in the evening, 1000 mg as needed up to 3 times a day. cetirizine 10 mg tablet 10 mg PO DAILY PRN (Reason: Allergy Symptoms) Rx Instructions: 1 tablet daily as needed cholecalciferol (vitamin D3) 25 mcg (1,000 unit) capsule 25 mcg PO BEDTIME Rx Instructions: 1 tablet daily PM azelastine 137 mcg (0.1 %) aerosol,spray 1 spray intranasal BID Qty: 30 12RF Rx Instructions: administer into each nostril ferrous sulfate 140 mg (45 mg iron) tablet extended release 140 mg PO BEDTIME Rx Instructions: 45 mg 1 tablet daily PM potassium chloride 20 mEq tablet,ER particles/crystals 20 meq PO BID fluoride (sodium) [Clinpro 5000] 1.1 % paste 1 applic dental BID Follow up/Referrals: Nicole Triana MD [Primary Care Provider] - 1 Week (Dr Chang's nurse has been notified that you need to be seen within 1 week of discharge they will call you with a appointment date & time ) Visit Report/Discharge Packet Instructions: DI for Atrial Fibrillation, Diltiazem, Apixaban Stand Alone Forms: Patient Portal/API, Stroke Signs & Symptoms Discharge Data Primary Care Provider: Nicole Triana Attending Provider: Gumaro Garcia Admit Date/Time: 06/19/23 21:41
== END 2023-06-20 13:45 | disposition home or self-care (01) ==
LOC: ED 21:36 → ICU 23:02 → AC 06-20 11:21 → ICU 06-20 11:21
PROVIDERS: Admitting Provider Internal Medicine; Emergency Provider Emergency Medicine; PCP Family Medicine; Referring Provider Emergency Medicine; Visit Provider Internal Medicine
DX: I48.91 Unspecified atrial fibrillation (principal); I10 Essential (primary) hypertension; C64.1 Malignant neoplasm of right kidney, except renal pelvis; H60.391 Other infective otitis externa, right ear; F32.A Depression, unspecified; J30.9 Allergic rhinitis, unspecified
CPT/HCPCS: 36415; 71045; 80048; 80053; 82550; 83690; 83735; 84484; 85025; 85610; 85730; 87797; 93005; 93010; 96365; 96366; 96375; 99284; G0378

== ENCOUNTER → 2023-07-17 14:34 | Outpatient (CLI) | payer MEDICARE, SELFPAY ==
[2023-06-19 21:42] VITALS: BMI 41.1
== END ==
PROVIDERS: PCP Family Medicine; Visit Provider Family Medicine
DX: R31.9 Hematuria, unspecified (principal); R10.9 Unspecified abdominal pain
CPT/HCPCS: 87086

== ENCOUNTER → 2023-07-24 11:25 | Outpatient (CLI) | payer MEDICARE, SELFPAY ==
[2023-06-19 21:42] VITALS: BMI 41.1
--- NOTE | 2023-07-24 11:26 | DI.CT.S_ITS ---
PROCEDURE: CT KIDNEY URETER BLADDER (KUB) INDICATIONS: hematuria with history of kidney stones. recent US negative TECHNIQUE: Axial sections were acquired from the lung bases to the pubic symphysis. Coronal and sagittal reformats were performed. For radiation dose reduction, the following was used: automated exposure control, adjustment of mA and/or kV according to patient size. COMPARISON: None. FINDINGS: Image quality: Diagnostic Lower chest: No basal consolidations or effusions. Mildly patulous distal esophagus. Borderline heart size. Liver: Unremarkable on this noncontrast study Gallbladder and biliary system: Absent, biliary system is nondilated Pancreas: No ductal dilation. Mild parenchymal atrophy Spleen: Nonenlarged Adrenals: Thickening bilaterally. Kidneys: Multiple renal calculi, at least 5 on the right and 3 on the left, measuring 4 mm or smaller. These appear nonobstructing. The right collecting system may be partially duplicated. In the upper moiety renal pelvis, there is a stone measuring 5 x 5 x 5 mm, with Hounsfield units of over 400. No significant upstream dilation. There are numerous renal lesions of varying densities. Suspected lesion in the right anterior lateral region measures 2.6 x 2.4 cm. Vessels and lymph nodes: No abdominal aortic aneurysm or pathologic lymph nodes by size criteria. Bowel and peritoneum: No evidence of small bowel obstruction. No pathologic ascites or drainable abscess. There are colonic diverticula. Body wall: Unremarkable Pelvis: Bladder is unremarkable. Pelvic calcifications are probably phleboliths. The uterus is absent. Bones: Degenerative changes. IMPRESSION: The right collecting system may be partially duplicated. In the upper moiety renal pelvis, there is a 5 x 5 x 5 mm stone, without significant upstream dilation. Numerous other nonobstructing stones under 5 mm are seen in the kidneys. Numerous renal lesions of varying densities, which are most commonly simple and complex hemorrhagic/proteinaceous cysts. Some lesions are indeterminate and may represent soft tissue neoplasm, for example in the right anterolateral region measuring up to 2.6 cm. Recommend renal protocol CT or MRI. Other findings as above. Dictated by: Monty Franco M.D. on 07/24/2023 at 12:41 Approved by: Monty Franco M.D. on 07/24/2023 at 12:49
== END ==
LOC: CT 11:25
PROVIDERS: PCP Family Medicine; Referring Provider Family Medicine; Visit Provider Family Medicine
DX: C64.1 Malignant neoplasm of right kidney, except renal pelvis (principal); N20.0 Calculus of kidney; R31.9 Hematuria, unspecified
CPT/HCPCS: 74176

== ENCOUNTER → 2023-08-13 13:50 | Outpatient (CLI) | payer MEDICARE, SELFPAY ==
[2023-06-19 21:42] VITALS: BMI 41.1
[2023-08-13 20:43] LABS: Free T4, Direct Thyroxine 1.36 ng/dL (0.78-2.19)
[2023-08-13 20:57] LABS: Thyroid Stimulating Hormone 3.46 uIU/mL (0.47-4.68)
== END ==
PROVIDERS: PCP Family Medicine; Visit Provider Internal Medicine Cardiovascular Disease
DX: I48.19 Other persistent atrial fibrillation (principal)
CPT/HCPCS: 84439; 84443

== ENCOUNTER → 2024-01-09 11:18 | Outpatient (CLI) | payer MEDICARE, SELFPAY ==
[2023-10-16 14:46] VITALS: BMI 41.1
--- NOTE | 2024-01-09 11:22 | DI.CT.S_ITS ---
PROCEDURE: CT ABDOMEN RENAL PROTOCOL INDICATIONS: Renal cell carcinoma, concern for growth TECHNIQUE: Optional 5 mm thick noncontrast images acquired from the diaphragm to the iliac crests. After the administration of intravenous contrast, 5 mm thick images again acquired from the diaphragm to the iliac crests in the arterial and urographic phases. 5 mm thick coronal and sagittal reformats were then acquired. For radiation dose reduction, the following was used: automated exposure control, adjustment of mA and/or kV according to patient size. COMPARISON: [facility], CT, CT KIDNEY URETER BLADDER (KUB), 07/24/2023, 11:43. FINDINGS: Image quality: Diagnostic. Kidneys and Ureters: Partially exophytic mass on the anterior margin of the right kidney measures 2.8 x 3.1 x 2.8 centimeters. The mass does not extend beyond the perirenal fascia. Renal vein is widely patent. Small burden bilateral, small, nonobstructing nephrolithiasis. No complex renal cystic lesions which require follow-up. 5 millimeter stone in the right proximal ureter, previously the UPJ, without significant hydronephrosis. Partial duplex right-sided renal collecting system. OTHER: Lower chest: Unremarkable. Liver: No solid mass. Gallbladder: Cholecystectomy. Biliary ducts: No biliary dilation. Pancreas: No ductal dilation. Spleen: Size is within normal limits. Adrenal Glands: No adrenal nodules. Stomach and Bowel: Normal colonic caliber, without significant wall thickening. Colonic diverticulosis without evidence of diverticulitis. Peritoneum: No abnormal intraperitoneal fluid. No free air. Ventral Wall: No hernia. Abdominal Nodes: No retroperitoneal or mesenteric adenopathy by size criteria. Vessels: Aorta and inferior vena cava are normal in size. Bones: No aggressive osseous abnormality. IMPRESSION: Solid appearing, partially exophytic mass on the anterior margin the right kidney measuring 2.8 x 3.1 x 2.8 centimeters. Findings are concerning for renal cell carcinoma. No evidence of invasion beyond the perirenal fascia. No renal vein invasion. No retroperitoneal adenopathy. 5 millimeter stone in the proximal right ureter of the upper pole moiety. Dictated by: Trey Shah M.D. on 01/09/2024 at 14:51 Approved by: Trey Shah M.D. on 01/09/2024 at 14:59
[2024-01-09 11:57] LABS: Estimated Glomerular Filt Rate > 60 mL/min (>60)
== END ==
PROVIDERS: Radiology Diagnostic Radiology; PCP Family Medicine; Referring Provider Urology; Visit Provider Urology
DX: C64.1 Malignant neoplasm of right kidney, except renal pelvis (principal); N20.1 Calculus of ureter; R10.9 Unspecified abdominal pain; Z90.49 Acquired absence of other specified parts of digestive tract
CPT/HCPCS: 36415; 74170; 82565; Q9967

== ENCOUNTER → 2024-01-30 09:26 | Outpatient (CLI) | payer MEDICARE, SELFPAY ==
[2023-10-16 14:46] VITALS: BMI 41.1
--- NOTE | 2024-01-30 | DI.MRI.S_ITS ---
PROCEDURE: MR BRAIN (IAC) WWO CON INDICATIONS: ASYMMETRICAL SENSORINEURAL HEARING LOSS TECHNIQUE: Noncontrast sagittal T1 spin echo, axial FLAIR, axial gradient echo, axial diffusion and ADC through the brain. Axial thin-slice 3D CISS, coronal TruFISP, axial T1 spin echo with fat saturation through the internal auditory canals. After the administration of contrast, thin slice axial and coronal T1 spin echo with fat saturation through the internal auditory canals, and axial and coronal and sagittal T1 spin echo with fat saturation through the brain. COMPARISON: None. FINDINGS: Image quality: Excellent. Cerebellopontine angles/cranial nerves: No cerebellopontine angle masses. Visualized cranial nerves demonstrate no areas of abnormal signal, enhancement or mass lesion. CSF spaces: Ventricles are normal in size and shape. No extra-axial fluid collections. Basal cisterns are patent. Brain: No intracranial bleeds or mass effects. Scott-white matter interface is intact. No abnormal intracranial enhancement. Diffusion weighted images demonstrate no acute ischemic insults. Brainstem appears normal. Normal intravascular flow voids are present. Skull and face: Calvarial marrow signal is normal. Orbits appear normal. Sinuses: Sinuses and mastoids are clear. IMPRESSION: 1. No acute intracranial process. 2. Moderate atrophy and chronic microvascular ischemic changes. Dictated by: Piper Wiseman M.D. on 01/30/2024 at 22:32 Approved by: Piper Wiseman M.D. on 01/30/2024 at 22:34
== END ==
LOC: MRI 09:27
PROVIDERS: PCP Family Medicine; Referring Provider Otolaryngology; Visit Provider Otolaryngology
DX: H90.3 Sensorineural hearing loss, bilateral (principal)
CPT/HCPCS: 70553; A9579

== ENCOUNTER → 2024-05-29 12:10 | Outpatient (CLI) | payer MEDICARE, SELFPAY ==
[2024-03-06 14:44] VITALS: BMI 41.1
--- NOTE | 2024-05-29 12:11 | DI.MG.S_ITS ---
BILATERAL DIGITAL SCREENING MAMMOGRAM 3D/2D WITH CAD: 05/29/2024 CLINICAL: Routine screening. Family history of breast cancer. Comparison is made to exams dated: 03/08/2023 mammogram, 08/21/2017 mammogram - [facility], and 12/15/2013 mammogram - [facility]. There are scattered areas of fibroglandular density (category b / 25%-50% glandular tissue). Current study was also evaluated with a Computer Aided Detection (CAD) system. There are benign calcifications in the right breast. No significant masses, calcifications, or other findings are seen in either breast. There has been no significant interval change. IMPRESSION: BENIGN There is no mammographic evidence of malignancy. A 1 year screening mammogram is recommended. Based on the Tyrer Cuzick model (a risk assessment model) the patient's lifetime risk is 4.1% and her 10 year risk is 3.1%. According to the ACR, ACS, and NCCN guidelines, an annual breast MRI exam along with mammogram is recommended if the patient's lifetime risk is 20% or greater. This exam was interpreted at Station ID: [id number]. NOTE: For mammograms, a report in lay terms will be sent to the patient. Approximately 15% of breast malignancies will not be visualized mammographically. In the management of a palpable breast mass, a negative mammogram must not discourage biopsy of a clinically suspicious lesion. Electronically Signed By: Karlo flores/juan c:05/30/2024 15:58:18 letter sent: Normal Exam ACR BI-RADS Category 2: Benign
== END ==
LOC: MAMMO 12:10
PROVIDERS: PCP Family Medicine; Referring Provider Family Medicine; Visit Provider Family Medicine
DX: Z12.31 Encounter for screening mammogram for malignant neoplasm of breast (principal); Z80.3 Family history of malignant neoplasm of breast
CPT/HCPCS: 77063; 77067

== ENCOUNTER → 2024-08-20 09:06 | Outpatient (CLI) | payer MEDICARE, SELFPAY ==
[2024-03-06 14:44] VITALS: BMI 41.1
[2024-08-20 19:25] LABS: Add Manual Diff / Slide Review NO; Basophils Absolute Auto 0 /uL (0-100); Eosinophils Absolute Auto 100 /uL (0-450); Monocytes Absolute Auto 300 /uL (0-900)
[2024-08-20 19:46] LABS: Alanine Aminotransferase 24 IU/L (<35); Albumin 4.6 g/dL (3.5-5.0); Albumin Globulin Ratio 1.8 (1.0-2.8); Alkaline Phosphatase 61 U/L (38-126); Aspartate Aminotransferase 30 IU/L (14-36); BUN Creatinine Ratio 28.1 (6-22); Bilirubin Total 0.8 mg/dL (0.2-1.3); Blood Urea Nitrogen 25 mg/dL (7-17); Calcium 9.9 mg/dL (8.4-10.2); Carbon Dioxide 26 mmol/L (22-32); Chloride 101 mmol/L (98-107); Cholesterol 170 mg/dL (140-199); Estimated Glomerular Filt Rate > 60 mL/min (>60); Globulin 2.6 g/dL (1.7-4.1); Glucose 125 mg/dL (80-110); HDL Cholesterol 71 mg/dL (40-60); HEMOLYSIS < 15 (0-50); Hemoglobin A1C% w Est Avg Glu 5.8 % (4.0-6.0); LDL Cholesterol Calculated 77 mg/dL (<100); Magnesium 1.8 mg/dL (1.6-2.3); Potassium 3.8 mmol/L (3.4-5.1); Sodium 137 mmol/L (137-145); Total Protein 7.2 g/dL (6.3-8.2); Triglycerides 108 mg/dL (35-150)
[2024-08-20 20:13] LABS: Thyroid Stimulating Hormone 4.05 uIU/mL (0.47-4.68)
[2024-08-20 21:01] LABS: Basophils Percent Auto 0.7 % (0-2); Eosinophils Percent Auto 1.8 % (2-4); Hematocrit 58.2 % (36-46); Hemoglobin 19.4 g/dL (12.0-16.0); Lymphocytes Absolute Auto 700 /uL (1100-4500); Lymphocytes Percent Auto 14.2 % (25-40); Mean Corpuscular HGB Conc 33.4 % (30-36); Mean Corpuscular Hemoglobin 29.6 PG (26-34); Mean Corpuscular Volume 88.7 fL (80-100); Monocytes Percent Auto 7.1 % (3-14); Neutrophils Absolute Auto 3500 /uL (1500-7000); Neutrophils Percent Auto 76.2 % (50-75); Platelet Count 198 X10^3/uL (150-400); Red Blood Cell Count 6.56 X10^6/uL (4.0-5.2); Red Cell Distribution Width 13.5 % (11.6-14.8); White Blood Cell Count 4.6 X10^3/uL (4.5-11.0)
== END ==
PROVIDERS: PCP Family Medicine; Visit Provider Family Medicine
DX: I48.91 Unspecified atrial fibrillation (principal); R79.89 Other specified abnormal findings of blood chemistry; I10 Essential (primary) hypertension; E87.6 Hypokalemia; E87.1 Hypo-osmolality and hyponatremia; E78.2 Mixed hyperlipidemia; R73.03 Prediabetes
CPT/HCPCS: 80053; 80061; 83036; 83735; 84443; 85025

== ENCOUNTER → 2024-09-16 13:46 | Outpatient (CLI) | payer MEDICARE, SELFPAY ==
[2024-03-06 14:44] VITALS: BMI 41.1
[2024-09-16 18:47] LABS: HEMOLYSIS < 15 (0-50); Iron 125 ug/dL (37-170)
[2024-09-16 18:59] LABS: Hematocrit 43.7 % (36-46); Hemoglobin 15.4 g/dL (12.0-16.0); Mean Corpuscular HGB Conc 35.3 % (30-36); Mean Corpuscular Hemoglobin 31.8 PG (26-34); Mean Corpuscular Volume 89.9 fL (80-100); Platelet Count 290 X10^3/uL (150-400); Red Blood Cell Count 4.86 X10^6/uL (4.0-5.2); Red Cell Distribution Width 13.3 % (11.6-14.8)
[2024-09-16 19:05] LABS: Percent Iron Saturation 44 % (15-50); Total Iron Binding Capacity 286 ug/dL (265-497); Transferrin 234 mg/dL (206-381)
[2024-09-16 19:11] LABS: Neutrophils Absolute Manual 3600 /uL (3000-5900); RBC Morphology Normal Morphology; Total Cells Counted 100
[2024-09-16 19:34] LABS: Ferritin 159 ng/mL (11-264)
== END ==
PROVIDERS: PCP Family Medicine; Visit Provider Family Medicine
DX: D75.1 Secondary polycythemia (principal)
CPT/HCPCS: 82668; 82728; 83540; 83550; 85025

== ENCOUNTER → 2025-01-14 14:04 | Outpatient (CLI) | payer MEDICARE, SELFPAY ==
[2024-03-06 14:44] VITALS: BMI 41.1
[2025-01-14 19:53] LABS: Blood Urea Nitrogen 24 mg/dL (7-17); Calcium 9.9 mg/dL (8.4-10.2); Carbon Dioxide 23 mmol/L (22-32); Chloride 103 mmol/L (98-107); Estimated Glomerular Filt Rate > 60 mL/min (>60); Glucose 151 mg/dL (70-99); Potassium 3.9 mmol/L (3.4-5.1); Sodium 137 mmol/L (137-145)
[2025-01-14 19:54] LABS: HEMOLYSIS 69 (0-50)
== END ==
PROVIDERS: PCP Family Medicine; Visit Provider Urology
DX: C64.1 Malignant neoplasm of right kidney, except renal pelvis (principal)
CPT/HCPCS: 80048

== ENCOUNTER → 2025-02-26 11:04 | Outpatient (CLI) | payer MEDICARE, SELFPAY ==
[2024-03-06 14:44] VITALS: BMI 41.1
--- NOTE | 2025-02-26 11:05 | DI.US.S_ITS ---
PROCEDURE: US PERIPH VENOUS LOW EXTREM BI INDICATIONS: PAD evaluation, atypical claudication symptoms TECHNIQUE: Real-time imaging, as well as color and pulse Doppler interrogation, were performed of the deep veins of both legs from the inguinal ligament to the popliteal fossa, with documentation of the visualized calf veins. COMPARISON: None. FINDINGS: Right: The common femoral, femoral, popliteal, and the visualized calf veins are normally compressible, and free of intraluminal thrombus. Color and pulse Doppler demonstrate normal phasic intravascular flow. There is normal augmentation response to distal compression maneuver. Left: The common femoral, femoral, popliteal, and the visualized calf veins are normally compressible, and free of intraluminal thrombus. Color and pulse Doppler demonstrate normal phasic intravascular flow. There is normal augmentation response to distal compression maneuver. IMPRESSION: No findings of deep venous thrombosis in either lower extremity. Dictated by: Gucci Pal M.D. on 02/26/2025 at 12:11 Approved by: Gucci Pal M.D. on 02/26/2025 at 12:12
== END ==
PROVIDERS: PCP Family Medicine; Referring Provider Family Medicine; Visit Provider Family Medicine
DX: I73.9 Peripheral vascular disease, unspecified (principal); R29.898 Other symptoms and signs involving the musculoskeletal system
CPT/HCPCS: 93970